=== PATIENT | male | born 1980 | race Caucasian/White ===

== ENCOUNTER 2017-06-10 08:00 | Outpatient (CLI) | payer BC, OTHER ==
[2017-06-10 19:37] LABS: ALBUMIN/GLOBULIN RATIO 1.8 (1.0-2.2); BILIRUBIN,TOTAL 0.7 mg/dL (0.2-1.0); CALCIUM 9.5 mg/dL (8.5-10.3); POTASSIUM 3.7 mmol/L (3.5-5.0); TOTAL PROTEIN 7.4 g/dL (6.7-8.2)
== END 2017-06-10 08:01 | disposition home or self-care (01) ==
LOC: LAB.WCP 08:00
PROVIDERS: ATTEND Physician Assistant Medical
DX: R03.0 Elevated blood-pressure reading, without diagnosis of hypertension (principal)
CPT/HCPCS: 80053

== ENCOUNTER 2020-06-24 16:40 | Outpatient (CLI) | payer BC ==
[2020-06-29 10:55] VITALS: BP 174/90
--- NOTE | 2020-06-29 10:55 | SLEEP CARE CONSULTATION ---
Information from patient questionnaire entered by Sheryl Lama. I have reviewed and concur with the information entered by Sheryl Lama. This document represents the service I personally performed and the decisions made by me, Virginie Epps RN, MSN, [employer]EM[employer] SUPERVISOR AND OPERATOR. History of Present Illness Service Date and Time: 06/24/2020 1640 Reason for Visit: New patient Chief Complaint: reports: Other (For CDL evaluation because of history of intermittent hypertension. Evaluation by drone operator recommended a sleep study) Usual bedtime: 10pm Time it takes to fall asleep: 10-20 minutes Snores at night: Yes (rare) Observed to quit breathing while asleep: No Sleeps alone due to snoring: No Number of times waking at night: 2-3 Reasons for waking at night: reports: Bathroom, Other (due to dogs or kids needs) Toss, Turn, or Twitch while sleeping: Yes (due to dog jumping in bed) Recalls having dreams: Yes Usually gets out of bed at: 5:30am work days and 8:30 days off Feels refreshed in the morning: No Morning headache: No (states he has grinding of teeth and sees a dentist) Sleepy or fatigued during the day: Yes (1-2 times a week) Ever fallen asleep while driving: Yes (about 20 years ago after working extended shift / no accident/ none now) Takes day naps: No Dreams during day naps: No (does not nap) Prior sleep studies: No - Parasomnia Symptoms Ever been unable to move upon waking from sleep: No Walks in sleep: No Talks in sleep: Yes (occasional) Ever felt weak in the knees when startled or emotional: No Bothered by creepy, crawly, restless sensations in legs: Yes (rare and feels it is due to left congenital hip deformity/ 1 times a month) Problems with memory or concentration: No Subjective Initial [place] Sleepiness Scale score: 4 Past Medical History Past Medical History: reports: Hypertension (intermittent elevation of blood pressure - no medications ( 140/ 85-90)), Anxiety (situational anxiety such as doctor visit) Social History 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 Patient is and lives in [place]. Alcohol use: Yes Alcohol amount and frequency: 1 glass hard cider most nights Caffeine use: Yes Caffeine amount and frequency: 16-20 oz day Family History Family history of sleep disordered breathing: No Allergies and Home Medications Known drug allergies: No Home medication list reviewed: No (no medications ) Review of Systems Cardiovascular: reports: high blood pressure. denies: palpitations, chest pain, irregular heart rate or pulse, leg or foot swelling, have to sleep sitting up, other Respiratory: denies: shortness of breath, wheeze, sputum production, chronic cough, other Gastrointestinal: denies: heartburn, difficulty swallowing, nausea, vomitting, diarrhea, abdominal pain, other Urinary: denies: incontinence, frequency, urgency, impotence, other Neurological: denies: headaches, seizure, head trauma, disorientation, speech dysfunction, gait or balance problems, fainting or unconsciousness, other Psychiatric: reports: anxiety (situational). denies: Attention Deficit Hyperactivity, depression, mood disorder, claustrophobia, other Ear/Nose/Throat: reports: wisdom teeth removed. denies: nasal congestion, sinus problems, nose bleeds, dry mouth/throat, hoarseness, injury to nose, tonsillectomy, other Endocrine: denies: thyroid disease, history of goiter, sluggishness, too hot or cold, excessive thirst, increased appetite, increased urination, unexplained weakness, other Musculoskeletal: reports: joint pain, neck pain, muscle pain or cramping. denies: back pain, joint swelling, mobility problems, other Immunologic: reports: allergies to food or environment, other (seaonal allergies). denies: sneezing, rash, itching Physical Exam Blood Pressure: 174/90 (164/90 repeat ) Cuff size: long Heart Rate: 90 O2 Saturation: 98 Height: 5 ft 10.5 in Weight: 213 lb Body Mass Index: 30.1 BMI Classification: Obese Neck circumference: 16.5 Nasal exam: positive: erythema, other (clear nasal secretions) Mood/affect: talkative / many questions HEENT: No craniofacial malformation Nostrils: patent to airflow Turbinates: normal Septum: midline Mouth and throat: narrow oropharynx Soft palate: long Hard palate: normal Uvula: long (unable to visualize) Uvula visualization: 0% Mallampati Class IV Tongue: enlarged in size with teeth barriga on lateral edges Tonsils: small Chin and jaw: normal size and position (patient has full thick dale) Heart: regular rate and rhythm Lungs: clear bilaterally Abdomen: soft Extremities: no edema or clubbing Neurologic: intact Impression and Plan 1. Suspected Obstructive Sleep Apnea-Hypopnea Syndrome, as suggested by a history of loud and irregular snoring, and intermittent excessive daytime sleepiness. Narrow oropharynx and obesity are common predisposing factors for obstructive sleep apnea-hypopnea syndrome. Essential hypertension can be caused by untreated sleep apnea. I recommend proceeding to polysomnography to confirm the diagnosis and to assess severity. An HST will be completed dependent upon insurance authorization. If the patient has significant sleep disordered breathing, a manual CPAP titration study will also be performed to find the optimal treatment pressure. I informed the patient of what the sleep studies involve and after some discussion, obtained agreement to proceed. The pathophysiology of obstructive sleep apnea-hypopnea syndrome was discussed with the patient and health risks of cardiovascular and cerebrovascular disease if not treated. AAS brochure for obstructive sleep apnea-hypopnea syndrome given a nd reviewed.Risks of drowsy driving discussed in detail and patient advised to avoid long distance driving and to date puller at the first sign of drowsiness. Patient agreed to plan. Patient had many questions that were answered in regard to sleep apnea and treatment. He is encouraged to lose weight to reduce apnea risk with rationale explained. 2. Irregular sleep - wake rhythm due to his waking 3 hours later on days off and could be contributing to his feeling of unrefreshed sleep. I counseled him on the importance of a regular sleep schedule both all days of week, working or not and how it affects his circadian rhythm. * Schedule polysomnography +- manual CPAP titration study and return in 1-2 weeks after the study to discuss result and initiate therapy. * Avoid long distance driving or driving when feeling sleepy. * Avoid alcohol, sedative and muscle relaxant around bedtime. * Attempt to lose weight to reduce apnea risk. * Review instructions provided by trained office staff on how to prepare for the sleep study. * Return for follow-up after sleep study completed. *Delay entry of this EMR report due to internet outage. Visit Type: In Office Time Spent with Patient (minutes): 40 Provider Statement: I spent 100% of the Face to Face Visit with the patient with greater than 50% spent counseling the patient and coordination of care.
== END 2020-06-24 16:41 | disposition home or self-care (01) ==
LOC: SC 16:40
PROVIDERS: ATTEND Nurse Practitioner Family
DX: R06.83 Snoring (principal); G47.63 Sleep related bruxism; G47.8 Other sleep disorders; G47.50 Parasomnia, unspecified; I10 Essential (primary) hypertension; G47.23 Circadian rhythm sleep disorder, irregular sleep wake type; E66.9 Obesity, unspecified; Z68.30 Body mass index [BMI] 30.0-30.9, adult
CPT/HCPCS: 99204; 99212

== ENCOUNTER 2023-05-10 08:24 | Outpatient (CLI) | payer BC ==
[2023-05-10 12:58] LABS: BASOPHILS % (AUTO) 0.4 %; EOSINOPHILS # (AUTO) 0.1 10^3/uL (0.0-0.7); EOSINOPHILS % (AUTO) 1.1 %; HCT - HEMATOCRIT 44.8 % (42.0-52.0); LYMPHOCYTES # (AUTO) 1.7 10^3/uL (1.5-3.5); LYMPHOCYTES % (AUTO) 37.7 %; MEAN CORPUSCULAR HGB CONC 33.5 g/dL (32.0-36.0); MEAN CORPUSCULAR VOLUME 86.7 fL (80.0-94.0); MEAN PLATELET VOLUME 10.1 fL (7.4-11.4); MONOCYTES # (AUTO) 0.5 10^3/uL (0.0-1.0); NEUTROPHILS # (AUTO) 2.3 10^3/uL (1.5-6.6); NEUTROPHILS % (AUTO) 50.4 %; PLT - PLATELET COUNT 303 10^3/uL (130-450); RED BLOOD COUNT 5.17 10^6/uL (4.70-6.10); WHITE BLOOD COUNT 4.6 x10^3/uL (4.8-10.8)
[2023-05-10 13:27] LABS: ALBUMIN 4.7 g/dL (3.2-5.5); ALBUMIN/GLOBULIN RATIO 1.8 (1.0-2.2); ALKALINE PHOSPHATASE 60 IU/L (42-121); ALT ALANINE AMINOTRANSFERASE 40 IU/L (10-60); AST ASPARTATE AMINOTRANSFERASE 23 IU/L (10-42); BILIRUBIN,TOTAL 0.6 mg/dL (0.2-1.0); BUN - BLOOD UREA NITROGEN 15 mg/dL (6-20); CALCIUM 9.5 mg/dL (8.5-10.3); CARBON DIOXIDE - CO2 28 mmol/L (21-32); CHLORIDE 105 mmol/L (101-111); CHOL/HDL RATIO 4.1 (<5.0); CHOLESTEROL 188 mg/dL; GFR - MDRD 81 (>89); GLUCOSE 112 mg/dL (74-104); HDL CHOLESTEROL 46 mg/dL; LDL CHOLESTEROL,CALCULATED 119 mg/dL; LDL/HDL RATIO 2.6 (<3.6); PHOSPHORUS 2.9 mg/dL (2.5-5.0); POTASSIUM 3.9 mmol/L (3.5-4.5); SODIUM 137 mmol/L (135-145); TOTAL PROTEIN 7.3 g/dL (6.4-8.9); TRIGLYCERIDES 116 mg/dL (48-352); VLDL CHOLESTEROL 23 mg/dL
[2023-05-10 13:31] LABS: THYROID STIMULATING HORMONE 1.09 uIU/mL (0.34-5.60)
== END 2023-05-10 08:25 | disposition home or self-care (01) ==
LOC: LAB.N 08:24
PROVIDERS: ATTEND Physician Assistant Medical
DX: Z00.00 Encounter for general adult medical examination without abnormal findings (principal); R00.2 Palpitations
CPT/HCPCS: 36415; 80053; 80061; 83721; 83735; 84100; 84443; 85025

== ENCOUNTER 2023-05-20 12:01 | Outpatient (CLI) | payer OTHER ==
--- NOTE | 2023-05-20 16:57 | XRAY Report ---
PROCEDURE: Lumbar Spine 2 View INDICATIONS: STRAIN OF MUSCLE,FASCIA AND TENDON OF LOWER BACK TECHNIQUE: 2 views of the lumbar spine were acquired. COMPARISON: None. FINDINGS: Bones: 5 [id number] vertebrae are present. There is trace retrolisthesis of L4 on L5 and L5 on S1. No vertebral body compression fractures. No suspicious bony lesions. Mild degenerative disc i s at L5 L5 and L5-S1. Moderate facet arthropathy at L4-L5 and L5-S1. Soft tissues: Overlying bowel gas pattern is normal. No suspicious soft tissue calcifications. IMPRESSION: 1. Mild degenerative disc disease and moderate facet arthropathy at L4-L5 and L5-S1. 2. Trace retrolisthesis of L4 on L5 and L5 on S1. Reviewed by: Agnieszka Treadwell MD on 05/20/2023 4:55 PM PDT Approved by: Agnieszka Treadwell MD on 05/20/2023 4:55 PM PDT Station ID: [id number]
== END 2023-05-20 12:02 | disposition home or self-care (01) ==
LOC: DI 12:01
PROVIDERS: ATTEND Family Medicine
DX: S39.012A Strain of muscle, fascia and tendon of lower back, initial encounter (principal); M51.36 Other intervertebral disc degeneration, lumbar region; M51.37 Other intervertebral disc degeneration, lumbosacral region; M47.816 Spondylosis without myelopathy or radiculopathy, lumbar region; M47.817 Spondylosis without myelopathy or radiculopathy, lumbosacral region; M43.16 Spondylolisthesis, lumbar region; M43.17 Spondylolisthesis, lumbosacral region